=== PATIENT | female | born 2000 | race Caucasian/White ===

== ENCOUNTER 2020-11-03 10:52 | Observation (INO) ==
[2020-11-03] MEDS ORDERED: SODIUM CHLORIDE 0.9% 1000ML 1,000 ML IV ONE (11:15)
--- NOTE | 2020-11-03 11:24 | Emergency Department Note ---
History of Present Illness General Chief complaint: Neuro Symptoms/Deficit Stated complaint: MIGRAINE, NUMBNESS LEFT ARM Time Seen by Provider: 11/03/20 11:05 Source: patient History of Present Illness Provider complaint: Left arm numbness Onset (ago): hour(s) Location: upper extremity and left Radiation: non-radiation Severity: mild Pain Consistency: + intermittent Maximum Pain Intensity: 0 Quality: + other (Jnpa-loy-lidqwrf sensation) Relieved By: + none Associated symptoms: + headaches; no chest pain, no cough, no fever/chills, no nausea/vomiting, no shortness of breath and no weakness This is a 20-year-old female who self diagnosed herself with ocular migraines years ago presenting with headache and left arm numbness. The patient states that starting last night she developed numbness to the left arm which she describes as [id number] without loss of sensation. She states it is diffuse throughout the entire arm. She has no associated neck pain. She did have some spasms in the upper arm while this was happening as well. The symptoms seem to subside and then she developed a headache. The headache is on the right side of her head behind her right eye. She also had trouble with her vision and felt she likely had another ocular migraine. She has had similar headaches in the past and self diagnosed with ocular migraines without seeing a physician. She states the last time she had a headache like this was about a year and a half ago. She states that she does not see spots but she has trouble focusing on objects and reading. The headaches continued all night but seems to have subsided and is mostly gone now. She denies any weakness to the extremities or difficulty with her gait or swallowing. She denies any fever, chest pain, shortness of breath, cough or cold symptoms, abdominal pain or urinary symptoms. She denies any family history of early stroke or migraines. She does state that she is on control pills. Home Medications Medication Instructions Recorded Confirmed Type Control 1 tab PO DAILY 11/03/20 11/03/20 History Allergies Allergy/AdvReac Type Severity Reaction Status Date / Time No Known Allergies Allergy Unverified 11/03/20 11:57 Past Med/Surg History Medical History (Updated 11/03/20 @ 17:30 by Omari Beverly MD) No pertinent past medical history non smoker Family History (Updated 11/03/20 @ 15:09 by TREY Stock) Father Seizure Social History Smoking Status: Never smoker Feels Safe at Home: Yes Review of Systems See HPI for pertinent positives & negatives. and A total of 10 systems reviewed and were otherwise negative Physical Exam Vital Signs Vital Signs - 24 hr 11/03/20 10:53 11/03/20 11:10 11/03/20 11:25 Temperature 36.5 C Temperature Source Temporal Artery Scan Pulse Rate 85 62 Pulse Rate from SpO2 Sensor 63 Respiratory Rate 19 13 Blood Pressure 138/94 118/81 Blood Pressure Mean 108 93 Pulse Oximetry 100 100 100 Oxygen Delivery Method Room Air Room Air Sepsis Recent Fever Within 48 Hours No Sepsis New/Unexplained Change in Mental Status No Sepsis Action Taken by Nursing No Action Required 11/03/20 11:31 11/03/20 11:32 11/03/20 12:00 Temperature Temperature Source Pulse Rate 63 64 64 Pulse Rate from SpO2 Sensor 63 62 62 Respiratory Rate 13 18 18 Blood Pressure 130/71 128/81 Blood Pressure Mean 90 96 Pulse Oximetry 92 100 100 Oxygen Delivery Method Sepsis Recent Fever Within 48 Hours Sepsis New/Unexplained Change in Mental Status Sepsis Action Taken by Nursing 11/03/20 12:49 11/03/20 12:51 11/03/20 13:00 Temperature Temperature Source Pulse Rate 72 66 70 Pulse Rate from SpO2 Sensor 72 66 74 Respiratory Rate 16 11 L 19 Blood Pressure 111/71 111/71 Blood Pressure Mean 84 84 Pulse Oximetry 100 100 100 Oxygen Delivery Method Sepsis Recent Fever Within 48 Hours Sepsis New/Unexplained Change in Mental Status Sepsis Action Taken by Nursing 11/03/20 13:01 11/03/20 13:30 11/03/20 13:31 Temperature Temperature Source Pulse Rate 80 73 85 Pulse Rate from SpO2 Sensor 81 89 91 H Respiratory Rate 22 13 14 Blood Pressure 110/74 129/83 Blood Pressure Mean 86 98 Pulse Oximetry 100 85 L 98 Oxygen Delivery Method Sepsis Recent Fever Within 48 Hours Sepsis New/Unexplained Change in Mental Status Sepsis Action Taken by Nursing 11/03/20 14:00 11/03/20 14:01 11/03/20 14:30 Temperature Temperature Source Pulse Rate 75 83 85 Pulse Rate from SpO2 Sensor 81 79 Respiratory Rate 15 13 12 Blood Pressure 139/99 133/85 Blood Pressure Mean 112 101 Pulse Oximetry 100 100 Oxygen Delivery Method Sepsis Recent Fever Within 48 Hours Sepsis New/Unexplained Change in Mental Status Sepsis Action Taken by Nursing 11/03/20 14:35 11/03/20 15:00 11/03/20 15:30 Temperature Temperature Source Pulse Rate 66 85 65 Pulse Rate from SpO2 Sensor Respiratory Rate 12 16 13 Blood Pressure 133/85 105/90 123/74 Blood Pressure Mean 101 95 90 Pulse Oximetry Oxygen Delivery Method Sepsis Recent Fever Within 48 Hours Sepsis New/Unexplained Change in Mental Status Sepsis Action Taken by Nursing 11/03/20 15:31 11/03/20 16:00 11/03/20 16:01 Temperature Temperature Source Pulse Rate 67 67 67 Pulse Rate from SpO2 Sensor Respiratory Rate 15 12 17 Blood Pressure 112/67 Blood Pressure Mean 82 Pulse Oximetry Oxygen Delivery Method Sepsis Recent Fever Within 48 Hours Sepsis New/Unexplained Change in Mental Status Sepsis Action Taken by Nursing 11/03/20 16:37 11/03/20 16:38 11/03/20 17:00 Temperature Temperature Source Pulse Rate 64 60 71 Pulse Rate from SpO2 Sensor 64 61 68 Respiratory Rate 17 15 14 Blood Pressure 132/68 109/82 Blood Pressure Mean 89 91 Pulse Oximetry 96 97 100 Oxygen Delivery Method Sepsis Recent Fever Within 48 Hours Sepsis New/Unexplained Change in Mental Status Sepsis Action Taken by Nursing Constitutional: Vital signs reviewed. Eyes: Pupils are equal round reactive to light. Conjunctiva are noninjected. ENT: Pharynx is clear without erythema or exudate. Mucous membranes are moist. Neck supple without meningeal signs. Respiratory: Clear to auscultation bilaterally. Breath sounds are equal bilaterally. Cardiovascular: Regular rate and rhythm. No rubs or gallops. GI: Soft, nondistended and nontender. Bowel sounds are present. Musculoskeletal: No peripheral edema. No lower extremity tenderness. Integumentary: No cyanosis. or jaundice. Neurologic: The patient is awake and alert. Cranial nerves II-XII are intact. Motor is 5 out of 5 all extremities. Sensation is intact to light touch all extremities. Normal speech. No pronator drift. No limb ataxia. Visual lyons tested by confrontation are intact bilaterally. Psychiatric: Normal affect. Not anxious appearing. Course Administered Medications Discontinued Medications Aspirin (Aspirin 81 Mg Chew) 324 mg PO NOW STA Stop: 11/03/20 13:42 Last Admin: 11/03/20 13:55 Dose: 324 mg Documented by: [id number] Aspirin (Aspirin 81 Mg Ectab) 81 mg PO NOW STA Stop: 11/03/20 14:49 Last Admin: 11/03/20 15:01 Dose: Not Given Documented by: [id number] Gadobutrol (Gadobutrol 65ml Vial) 5 ml IV ONCE ONE Stop: 11/03/20 12:33 Last Admin: 11/03/20 12:33 Dose: 5 ml Documented by: [id number] Sodium Chloride (Nss 1000ml) 1,000 mls @ 999 mls/hr IV .Q1H1M ONE Stop: 11/03/20 12:15 Last Infusion: 11/03/20 12:29 Dose: 0 mls/hr Documented by: [id number] Admin: 11/03/20 11:28 Dose: 999 mls/hr Documented by: [id number] Ioversol (Optiray 320 125ml) 120 ml IV ONCE ONE Stop: 11/03/20 13:20 Last Admin: 11/03/20 13:19 Dose: 120 ml Documented by: [id number] Medical Decision Making Differential Diagnosis Complex migraine, tension headache, demyelinating disease, CVA, cervical ra diculopathy, aneurysm Medical Records Attestation: I reviewed the patient's medical records. I did perform a limited focused review of portions of the patient's old chart on the electronic medical record. The patient has had no prior visits to this hospital. Home Medications Current Medication List: was personally reviewed by me Laboratory Data Attestation: I reviewed the patient's lab results. Result diagrams: 11/03/20 11:23 11/03/20 11:23 Lab Results 11/03/20 11/03/20 11/03/20 Range/Units 11:23 11:23 11:24 WBC 10.00 (4.8-10.8) K/uL RBC 4.82 (4.2-5.4) M/uL Hgb 15.5 (12.0-16.0) g/dL Hct 43.8 (37-47) % MCV 90.9 (80-100) fL MCH 32.2 (25-34) pg MCHC 35.4 (32-36) g/dL RDW Std Deviation 38.5 (36.4-46.3) fL RDW Coeff of Apoorva 11.5 (11.5-14.5) % Plt Count 290 (130-400) K/uL MPV 10.7 H (7.4-10.4) fL Immature Gran % (Auto) 0.2 % Neut % (Auto) 76.8 % Lymph % (Auto) 17.4 % [place] % (Auto) 5.3 % Eos % (Auto) 0.1 % Baso % (Auto) 0.2 % Neut # (Auto) 7.68 H (1.4-6.5) K/uL Lymph # (Auto) 1.74 (1.2-3.4) K/uL [place] # (Auto) 0.53 (0.11-0.59) K/uL Eos # (Auto) 0.01 (0-0.5) K/uL Baso # (Auto) 0.02 (0-0.2) K/uL Immature Gran # (Auto) 0.02 (0.00-0.02) K/uL PT (9.0-12.0) Seconds INR (0.9-1.1) APTT (21.0-31.0) Seconds PTT Ratio Sodium 140 (136-145) mmol/L Potassium 4.1 (3.5-5.1) mmol/L Chloride 110 H (98-107) mmol/L Carbon Dioxide 23 (21-32) mmol/L Anion Gap 7.0 (3-11) BUN 5 L (7-18) mg/dl Creatinine 0.73 (0.6-1.2) mg/dl Est Cr Clr Drug Dosing 92.0 ml/min Est GFR ( Amer) 136.5 Est GFR (Non-Af Amer) 117.7 BUN/Creatinine Ratio 7.2 L (10-20) Glucose 94 (70-99) mg/dl Calcium 9.3 (8.5-10.1) mg/dl Magnesium (1.8-2.4) mg/dl Total Bilirubin 0.6 (0.2-1) mg/dl AST 18 (15-37) U/L ALT 22 (12-78) U/L Alkaline Phosphatase 63 (45-117) U/L Troponin I (0-0.045) ng/ml Total Protein 8.0 (6.4-8.2) gm/dl Albumin 4.3 (3.4-5.0) gm/dl Globulin 3.7 (2.5-4.0) gm/dl Albumin/Globulin Ratio 1.2 (0.9-2) POC Ur Test NEG (NEG) Urine Opiates Screen (Neg) Ur Methadone, Qual (Neg) Urine Barbiturates (Neg) Ur Phencyclidine (PCP) (Neg) U Amphetamin/Meth Scrn (Neg) MDMA (Ecstasy) Screen (Neg) U Benzodiazepines Scrn (Neg) Ur Cocaine Metabolite (Neg) U Marijuana (THC) Screen (Neg) COVID-19 Eval Order SARS-CoV-2, RNA, NAAT (NEGATIVE) Blood Type Antibody Screen 11/03/20 11/03/20 11/03/20 Range/Units 11:24 13:47 13:47 WBC (4.8-10.8) K/uL RBC (4.2-5.4) M/uL Hgb (12.0-16.0) g/dL Hct (37-47) % MCV (80-100) fL MCH (25-34) pg MCHC (32-36) g/dL RDW Std Deviation (36.4-46.3) fL RDW Coeff of Apoorva (11.5-14.5) % Plt Count (130-400) K/uL MPV (7.4-10.4) fL Immature Gran % (Auto) % Neut % (Auto) % Lymph % (Auto) % [place] % (Auto) % Eos % (Auto) % Baso % (Auto) % Neut # (Auto) (1.4-6.5) K/uL Lymph # (Auto) (1.2-3.4) K/uL [place] # (Auto) (0.11-0.59) K/uL Eos # (Auto) (0-0.5) K/uL Baso # (Auto) (0-0.2) K/uL Immature Gran # (Auto) (0.00-0.02) K/uL PT (9.0-12.0) Seconds INR (0.9-1.1) APTT (21.0-31.0) Seconds PTT Ratio Sodium (136-145) mmol/L Potassium (3.5-5.1) mmol/L Chloride (98-107) mmol/L Carbon Dioxide (21-32) mmol/L Anion Gap (3-11) BUN (7-18) mg/dl Creatinine (0.6-1.2) mg/dl Est Cr Clr Drug Dosing ml/min Est GFR ( Amer) Est GFR (Non-Af Amer) BUN/Creatinine Ratio (10-20) Glucose (70-99) mg/dl Calcium (8.5-10.1) mg/dl Magnesium (1.8-2.4) mg/dl Total Bilirubin (0.2-1) mg/dl AST (15-37) U/L ALT (12-78) U/L Alkaline Phosphatase (45-117) U/L Troponin I (0-0.045) ng/ml Total Protein (6.4-8.2) gm/dl Albumin (3.4-5.0) gm/dl Globulin (2.5-4.0) gm/dl Albumin/Globulin Ratio (0.9-2) POC Ur Test (NEG) Urine Opiates Screen Neg (Neg) Ur Methadone, Qual Neg (Neg) Urine Barbiturates Neg (Neg) Ur Phencyclidine (PCP) Neg (Neg) U Amphetamin/Meth Scrn Neg (Neg) MDMA (Ecstasy) Screen Neg (Neg) U Benzodiazepines Scrn Neg (Neg) Ur Cocaine Metabolite Neg (Neg) U Marijuana (THC) Screen Neg (Neg) COVID-19 Eval Order Covid19 IDNow atMMIC SARS-CoV-2, RNA, NAAT NEGATIVE (NEGATIVE) Blood Type Antibody Screen 11/03/20 11/03/20 11/03/20 Range/Units 13:50 13:50 13:50 WBC (4.8-10.8) K/uL RBC (4.2-5.4) M/uL Hgb (12.0-16.0) g/dL Hct (37-47) % MCV (80-100) fL MCH (25-34) pg MCHC (32-36) g/dL RDW Std Deviation (36.4-46.3) fL RDW Coeff of Apoorva (11.5-14.5) % Plt Count (130-400) K/uL MPV (7.4-10.4) fL Immature Gran % (Auto) % Neut % (Auto) % Lymph % (Auto) % [place] % (Auto) % Eos % (Auto) % Baso % (Auto) % Neut # (Auto) (1.4-6.5) K/uL Lymph # (Auto) (1.2-3.4) K/uL [place] # (Auto) (0.11-0.59) K/uL Eos # (Auto) (0-0.5) K/uL Baso # (Auto) (0-0.2) K/uL Immature Gran # (Auto) (0.00-0.02) K/uL PT 10.5 (9.0-12.0) Seconds INR 1.0 (0.9-1.1) APTT 27.3 (21.0-31.0) Seconds PTT Ratio 1.0 Sodium (136-145) mmol/L Potassium (3.5-5.1) mmol/L Chloride (98-107) mmol/L Carbon Dioxide (21-32) mmol/L Anion Gap (3-11) BUN (7-18) mg/dl Creatinine (0.6-1.2) mg/dl Est Cr Clr Drug Dosing ml/min Est GFR ( Amer) Est GFR (Non-Af Amer) BUN/Creatinine Ratio (10-20) Glucose (70-99) mg/dl Calcium (8.5-10.1) mg/dl Magnesium 2.1 (1.8-2.4) mg/dl Total Bilirubin (0.2-1) mg/dl AST (15-37) U/L ALT (12-78) U/L Alkaline Phosphatase (45-117) U/L Troponin I < 0.015 (0-0.045) ng/ml Total Protein (6.4-8.2) gm/dl Albumin (3.4-5.0) gm/dl Globulin (2.5-4.0) gm/dl Albumin/Globulin Ratio (0.9-2) POC Ur Test (NEG) Urine Opiates Screen (Neg) Ur Methadone, Qual (Neg) Urine Barbiturates (Neg) Ur Phencyclidine (PCP) (Neg) U Amphetamin/Meth Scrn (Neg) MDMA (Ecstasy) Screen (Neg) U Benzodiazepines Scrn (Neg) Ur Cocaine Metabolite (Neg) U Marijuana (THC) Screen (Neg) COVID-19 Eval Order SARS-CoV-2, RNA, NAAT (NEGATIVE) Blood Type B Negative Antibody Screen NEGATIVE Imaging Data Radiologist's Impression: CT angio neck with con CLINICAL HISTORY: 20 years-old Female with Stroke Like Symptoms. Acute stroke the right posterior circulation COMPARISON STUDY: MRI brain and MRA head of same day TECHNIQUE: Following the IV administration of 1 20 mL of Optiray 320, CT angiogram of the neck was performed from the aortic arch to the skull base. Images are reviewed in the axial, sagittal, and coronal planes. 3-D MIPS images are created and assessed. IV contrast was administered without complication. All measurements were calculated based on NASCET criteria. A dose lowering technique was utilized adhering to the principles of ALARA. CT DOSE: 714.24 mGycm FINDINGS: Three-vessel morphology of the thoracic aortic arch. The innominate and imaged subclavian arteries are normal. Patent and normal-appearing common, internal carotid and vertebral arteries. The imaged basilar artery is also normal. No aneurysm, dissection, high-grade stenosis or proximal branch occlusion. Unremarkable thyroid. Lung apices are clear without pneumothorax. Soft tissue d ensity of the anterior mediastinum suggests residual thymic tissue. Minimal uncovertebral spurring at C2-C3 at C3-C4. No acute fracture. Lung apices are clear. IMPRESSION:Unremarkable CTA of the neck. ACT 112: Negative or not required by law. The above report was generated using voice recognition software. It may contain grammatical, syntax or spelling errors. Electronically signed by: Dhaval Donnelly M.D. 11/03/2020 1:37 PM Dictated: 11/03/20 1323 Transcribed: 11/03/20 1323 MR ANGIOGRAM OF THE BRAIN CLINICAL HISTORY: Left upper extremity numbness. Vision loss. COMPARISON STUDY: MRI of the brain performed concurrently on 11/03/2020. TECHNIQUE: 3-D [id number] MR angiography of the intracranial circulation is performed. 3-D tumble views are created and assessed. IV contrast was not administered for this examination. FINDINGS: There is a right posterior communicating artery. The internal carotid arteries are widely patent bilaterally, as are the anterior and middle cerebral arteries. The vertebrobasilar system and posterior cerebral arteries are widely patent. The vertebral arteries are codominant. There is no aneurysm, high-grade stenosis, or focal vessel cutoff seen throughout the intracranial circulation. The brain parenchyma is normal as visualized. IMPRESSION: Unremarkable MR angiogram of the brain. ACT 112: Negative or not required by law. Electronically signed by: Osmin Palencia M.D. 11/03/2020 12:29 PM Dictated: 11/03/20 1227 Transcribed: 11/03/207 MRI OF THE BRAIN COMBO CLINICAL HISTORY: Left arm numbness. Visual changes. COMPARISON STUDY: No priors. TECHNIQUE: MRI of the brain was performed utilizing various T1 and T2-weighted sequences in the axial, sagittal, and coronal planes. Contrast-enhanced sequences were acquired following the administration of 5 cc of Gadavist. FINDINGS: Brain parenchyma: There are least 3 small foci of restricted diffusion identified in the right posterior parieto-occipital region consistent with foci of acute to subacute ischemia. The largest measures up to 8 mm. No additional foci of restricted diffusion are identified. There is no hemorrhage or mass effect. No enhancing mass lesion is identified on the postcontrast images. Upton-white matter differentiation is preserved. No extra-axial fluid collection is seen. The cerebellar tonsils are normal in configuration. Ventricles, sulci, and cisterns: Normal in configuration. Pituitary and sella: Unremarkable. Intracranial vasculature: Normal flow voids are maintained at the skull base. Orbits: The bony orbits are grossly intact. Orbital contents are normal in appearance. Sinuses and mastoids: Clear. Calvarium: Unremarkable. Cervical cord: Partially visualized cervical spinal cord is normal in morphology and signal intensity. IMPRESSION: 1. There are small foci of restricted diffusion in the posterior right parieto- occipital region as above consistent with acute to subacute ischemia. 2. No additional foci of acute ischemia are identified. 3. There is no hemorrhage or mass effect. ACT 112: Negative or not required by law. Electronically signed by: Osmin Palencia M.D. 11/03/2020 12:48 PM Dictated: 11/03/20 1243 Transcribed: 11/03/20 124 ECG Data Attestation: I personally reviewed and interpreted this ECG as follows: Indication: + other (Stroke) Rate (beats per minute): 63 Rhythm: + normal sinus ECG Intervals/blocks: + Short LA ECG ST segments: no ST elevation ECG Findings: + PACs MDM Narrative I did evaluate the patient as noted above. The patient is presenting with symptoms concerning for a complex migraine versus CVA versus aneurysm. She states she has ocular migraines but this is self diagnosed and there is no [facility] history of migraines. She also had some visual problems that were not typical of scotomas. On exam here her NIH stroke scale is 0. Given her symptoms I was concerned about the potential for CVA and recommended advanced imaging. IV access was established. I did place an order for continuous cardiac monitoring. The monitor showed normal sinus rhythm at a rate of 68 bpm. She did have occasional PACs on the monitor. I did order and personally review the patient's 12-lead EKG as described above. She has a short LA interval with PACs. No delta waves are noted. She denies any history of preexcitation or WPW in the family. Urine test is negative. Urine tox screen is negative. I did order and review the patient's blood work as noted in the electronic medical record. Her white blood cell count is unremarkable. She is not anemic. Her electrolytes are unremarkable. Troponin is negative. I did order a MRI of the head and MRA of the head as well. Unfortunately the patient has small acute to subacute infarcts in the posterior right parieto-occipital lobe. MRA is n egative. I did discuss this with the patient. Her NIH score remains 0. She is not a IV TPA candidate. After discussion with the patient and her father over the telephone, I did order a CT angiogram of the neck. I did review the images myself as well as the radiology report as described above. There is no evidence of carotid stenosis or dissection of the carotid arteries. I did treat the pat ient with aspirin 324 mg p.o. I did recommend hospitalization for further care and evaluation including echocardiogram. I did order a hypercoagulable panel. I did discuss case with the hospitalist and correctional case manager. Impression & Plan Acute CVA (cerebrovascular accident) Discharge Plan Visit Data Chief Complaint: Neuro Symptoms/Deficit Stated Complaint: MIGRAINE, NUMBNESS LEFT ARM ED Provider: Omari Beverly Discharge Problem: Acute CVA (cerebrovascular accident) Forms Stand Alone Forms: My [employer] Prescriptions Prescriptions: No Action Control 1 tab PO DAILY RF: 0 Referrals Referrals: [facility] [Primary Care Provider] -
[2020-11-03 11:46] LABS: Basophils # (auto) 0.02 K/uL (0-0.2); Basophils % (auto) 0.2 %; Eosinophils # (auto) 0.01 K/uL (0-0.5); Eosinophils % (auto) 0.1 %; Hematocrit (blood only) 43.8 % (37-47); Hemoglobin 15.5 g/dL (12.0-16.0); Immature Granulocytes # (auto) 0.02 K/uL (0.00-0.02); Immature Granulocytes % (auto) 0.2 %; Lymphocytes # (auto) 1.74 K/uL (1.2-3.4); Lymphocytes % (auto) 17.4 %; Mean Corpuscular Hemoglobin 32.2 pg (25-34); Mean Corpuscular Hgb Conc 35.4 g/dL (32-36); Mean Corpuscular Volume 90.9 fL (80-100); Mean Platelet Volume 10.7 fL (7.4-10.4); Monocytes # (auto) 0.53 K/uL (0.11-0.59); Monocytes % (auto) 5.3 %; Neutrophils # (auto) 7.68 K/uL (1.4-6.5); Neutrophils % (auto) 76.8 %; Platelet Count 290 K/uL (130-400); RDW Coefficient of Variation 11.5 % (11.5-14.5); RDW Standard Deviation 38.5 fL (36.4-46.3); Red Blood Count 4.82 M/uL (4.2-5.4)
[2020-11-03 12:06] LABS: Albumin Globulin Ratio 1.2 (0.9-2); Albumin Level 4.3 gm/dl (3.4-5.0); BUN Creatinine Ratio 7.2 (10-20); Bilirubin,Total 0.6 mg/dl (0.2-1); Calcium 9.3 mg/dl (8.5-10.1); Est GFR (African American) 136.5; Est GFR (Non-African American) 117.7; Globulin 3.7 gm/dl (2.5-4.0); Potassium 4.1 mmol/L (3.5-5.1)
--- NOTE | 2020-11-03 12:31 | Magnetic Resonance Report ---
MR ANGIOGRAM OF THE BRAIN CLINICAL HISTORY: Left upper extremity numbness. Vision loss. COMPARISON STUDY: MRI of the brain performed concurrently on 11/03/2020. TECHNIQUE: 3-D [id number] MR angiography of the intracranial circulation is performed. 3-D tumble views are created and assessed. IV contrast was not administered for this examination. FINDINGS: There is a right posterior communicating artery. The internal carotid arteries are widely p atent bilaterally, as are the anterior and middle cerebral arteries. The vertebrobasilar system and p osterior cerebral arteries are widely patent. The vertebral arteries are codominant. There is no aneu rysm, high-grade stenosis, or focal vessel cutoff seen throughout the intracranial circulation. The b rain parenchyma is normal as visualized. IMPRESSION: Unremarkable MR angiogram of the brain. ACT 112: Negative or not required by law. Electronically signed by: Osmin Palencia M.D. 11/03/2020 12:29 PM
[2020-11-03] MEDS ORDERED: GADOBUTROL 65ML VIAL IV ONE (12:32)
--- NOTE | 2020-11-03 12:49 | Magnetic Resonance Report ---
MRI OF THE BRAIN COMBO CLINICAL HISTORY: Left arm numbness. Visual changes. COMPARISON STUDY: No priors. TECHNIQUE: MRI of the brain was performed utilizing various T1 and T2-weighted sequences in the axial , sagittal, and coronal planes. Contrast-enhanced sequences were acquired following the administratio n of 5 cc of Gadavist. FINDINGS: Brain parenchyma: There are least 3 small foci of restricted diffusion identified in the right front line supervisor ior parieto-occipital region consistent with foci of acute to subacute ischemia. The largest measures up to 8 mm. No additional foci of restricted diffusion are identified. There is no hemorrhage or mas s effect. No enhancing mass lesion is identified on the postcontrast images. Upton-white matter diffe rentiation is preserved. No extra-axial fluid collection is seen. The cerebellar tonsils are normal i n configuration. Ventricles, sulci, and cisterns: Normal in configuration. Pituitary and sella: Unremarkable. Intracranial vasculature: Normal flow voids are maintained at the skull base. Orbits: The bony orbits are grossly intact. Orbital contents are normal in appearance. Sinuses and mastoids: Clear. Calvarium: Unremarkable. Cervical cord: Partially visualized cervical spinal cord is normal in morphology and signal intensity . IMPRESSION: 1. There are small foci of restricted diffusion in the posterior right parieto-occipital region as ab ove consistent with acute to subacute ischemia. 2. No additional foci of acute ischemia are identified. 3. There is no hemorrhage or mass effect. ACT 112: Negative or not required by law. Electronically signed by: Osmin Palencia M.D. 11/03/2020 12:48 PM
[2020-11-03] MEDS ORDERED: OPTIRAY 320 125ml IV ONE (13:19)
--- NOTE | 2020-11-03 13:38 | CT Scan Report ---
CT angio neck with con CLINICAL HISTORY: 20 years-old Female with Stroke Like Symptoms. Acute stroke the right posterior circulation COMPARISON STUDY: MRI brain and MRA head of same day TECHNIQUE: Following the IV administration of 1 20 mL of Optiray 320, CT angiogram of the neck was pe rformed from the aortic arch to the skull base. Images are reviewed in the axial, sagittal, and coron al planes. 3-D MIPS images are created and assessed. IV contrast was administered without complicatio n. All measurements were calculated based on NASCET criteria. A dose lowering technique was utilized adhering to the principles of ALARA. CT DOSE: 714.24 mGycm FINDINGS: Three-vessel morphology of the thoracic aortic arch. The innominate and imaged subclavian arteries ar e normal. Patent and normal-appearing common, internal carotid and vertebral arteries. The imaged bas ilar artery is also normal. No aneurysm, dissection, high-grade stenosis or proximal branch occlusion . Unremarkable thyroid. Lung apices are clear without pneumothorax. Soft tissue density of the anteri or mediastinum suggests residual thymic tissue. Minimal uncovertebral spurring at C2-C3 at C3-C4. No acute fracture. Lung apices are clear. IMPRESSION:Unremarkable CTA of the neck. ACT 112: Negative or not required by law. The above report was generated using voice recognition software. It may contain grammatical, syntax o r spelling errors. Electronically signed by: Dhaval Donnelly M.D. 11/03/2020 1:37 PM
[2020-11-03] MEDS ORDERED: ASPIRIN 81 MG CHEW PO STA (13:41)
[2020-11-03 14:16] LABS: Amphetamines+Metham, Urine Neg (Neg); Barbiturates, Urine Neg (Neg); Benzodiazepine, Urine Neg (Neg); Cocaine, Urine Neg (Neg); MDMA (Ecstacy), Urine Neg (Neg); Methadone, Urine Neg (Neg); Opiate, Urine Neg (Neg); Phencyclidine, Urine Neg (Neg)
[2020-11-03 14:27] LABS: Partial Thromboplastin Time 27.3 Seconds (21.0-31.0); Prothrombin Time 10.5 Seconds (9.0-12.0)
[2020-11-03 14:28] LABS: Magnesium 2.1 mg/dl (1.8-2.4); Troponin I < 0.015 ng/ml (0-0.045)
[2020-11-03] MEDS ORDERED: ASPIRIN 81 MG ECTAB PO STA (14:48)
--- NOTE | 2020-11-03 15:00 | History & Physical Report ---
Date of Service November 03, 2020 Assessment & Plan (1) Stroke: Ischemic stroke, risk factor PRESTON, non smoker 3 small foci of restricted diffusion identified in the right posterior parieto- occipital region. - Patient not candidate for TPA - Tox screen normal, glucose normal, COVID negative - ASA given in EMD - No residual neurological deficits at this time - Q2 hour neurological checks - TTE ordered - Irregular rhythm with PACS on monitor with short CT no other cardiac history revealed by patient-- telemetry rule out dysrythmia - Hypercoagulability labs sent, ESR, antiphospholipid, homocysteine panel pending - lipids in morning, unlikely needing therapy - PRESTON on hold, patient was educated that this will likely have to be discontinued and other avenues pursued with her PCP - Neurology consult History of Present Illness Primary Care Provider: [facility] 20 YOF with past medical history of self diagnosed ocular migraines, contraceptive use, denies binge drinking or smoking. Patient comes to the emergency room today for evaluation of neurologic symptoms and eye pain. No history of head or neck trauma prior to this event. Patient states that around 2100 last night, she first noticed that her left arm started having pins and needles, and then became weak to move and "spasms", this lasted for about an hour, this was then associated with a bifrontal headache with then pain behind her right eye. This was also associated with bottom lip numbness and the tip of her tongue numbness. The eye pain was associated with blind spot off center of her vision if she was focusing on an object or trying to read a text. Patient states that she has been having these "ocular migraines" over the past 2 years and they are normally relieved with Advil and rest. The patient awoke this morning and was still having the eye pain without the visual symptom so she went to urgent care. Urgent care referred the patient here. The patient states that she finally felt like she was back to normal at 1000 this morning. She denies any balance problems, difficulty reading or writing, return of weakness, or difficulty swallowing. The patient COVID test is negative, however the patient thinks she may have had COVID last year while traveling in [place]. She has not received her influenza vaccine. The patient will be observed to continue stroke work-up, transthoracic echo, neurology evaluation, and hypercoagulability workup started. Allergies Allergy/AdvReac Type Severity Reaction Status Date / Time No Known Allergies Allergy Unverified 11/03/20 11:57 Home Medications Medication Instructions Recorded Confirmed Type Control 1 tab PO DAILY 11/03/20 11/03/20 History Past Med/Surg History Medical History (Updated 11/03/20 @ 15:06 by TREY Stock) No pertinent past medical history non smoker Family History (Updated 11/03/20 @ 15:09 by TREY Stock) Father Seizure Social History Smoking Status: Never smoker Feels Safe at Home: Yes Review of Systems Review of Systems: REVIEW OF SYSTEMS: Constitutional: No fever, sweats or chills Eyes: as per HPI, No diplopia, no worsening or blurred vision ENT: normal hearing, no trouble swallowing Respiratory: No cough, sputum, dyspnea at rest or on exertion Cardiovascular: No chest pain, tightness or palpitations Abdomen: No pain, nausea, vomiting, diarrhea or constipation Musculoskeletal: No joint pain, calf pain, swelling Neurologic: No weakness, numbness/tingling, or balance problems Psychiatric: No anxiety or depression Skin: No rash or itch Physical Exam Physical Exam: PHYSICAL EXAM: General: awake, alert, no apparent distress Head: Normocephalic, atraumatic ENT: normal hearing, no pharyngeal exudate, mucous membranes moist Neuro: CN 2-12 intact, AAO x 3, PERRL, EOMI, visual acuity normal with glasses, speech clear and appropriate, strength intact bilaterally 5/5, sensation intact and equal all extremities and dermatomes, no pronator drift, no ataxia, no overshoot with finger to nose, normal rapid movements intact. Chest: equal rise and fall of the chest, no accessory muscle use, no heaves or thrills, Clear to auscultation, on room air, Cardiac: Regular rate, irregular rhythm, with PAC, telemetry reviewed, skin warm dry, cap refill <3 seconds, peripheral pulses, +2 no JVD, no murmur GI: NABS x 4 quadrants, soft, nontender to palpation, no rebound, guarding or tenderness : Spontaneously voiding, no pain, no CVA tenderness, Extremities: Normal inspection, no peripheral edema or erythema, calfs nontender to palpation Psych: Normal mood and affect Skin: no rash or erythema Results & Data Results & Data ([facility]) Vital Signs (Past 12 Hours) Vital Signs Temp Pulse Resp BP Pulse Ox 11/03/20 13:31 85 14 98 11/03/20 13:30 73 13 129/83 85 L 11/03/20 13:01 80 22 110/74 100 11/03/20 13:00 70 19 100 11/03/20 12:51 66 11 L 111/71 100 11/03/20 12:49 72 16 111/71 100 11/03/20 12:00 64 18 128/81 100 11/03/20 11:32 64 18 130/71 100 11/03/20 11:31 63 13 92 11/03/20 11:25 62 13 118/81 100 11/03/20 11:10 100 11/03/20 10:53 36.5 C 85 19 138/94 100 Laboratory Results Abnormal lab results 11/03/20 11/03/20 Range/Units 11:23 11:23 MPV 10.7 H (7.4-10.4) fL Neut # (Auto) 7.68 H (1.4-6.5) K/uL Chloride 110 H (98-107) mmol/L BUN 5 L (7-18) mg/dl BUN/Creatinine Ratio 7.2 L (10-20) Diagnostic Findings MRI OF THE BRAIN COMBO CLINICAL HISTORY: Left arm numbness. Visual changes. COMPARISON STUDY: No priors. TECHNIQUE: MRI of the brain was performed utilizing various T1 and T2-weighted sequences in the axial, sagittal, and coronal planes. Contrast-enhanced sequences were acquired following the administration of 5 cc of Gadavist. FINDINGS: Brain parenchyma: There are least 3 small foci of restricted diffusion identified in the right posterior parieto-occipital region consistent with foci of acute to subacute ischemia. The largest measures up to 8 mm. No additional foci of restricted diffusion are identified. There is no hemorrhage or mass effect. No enhancing mass lesion is identified on the postcontrast images. Upton-white matter differentiation is preserved. No extra-axial fluid collection is seen. The cerebellar tonsils are normal in configuration. Ventricles, sulci, and cisterns: Normal in configuration. Pituitary and sella: Unremarkable. Intracranial vasculature: Normal flow voids are maintained at the skull base. Orbits: The bony orbits are grossly intact. Orbital contents are normal in appearance. Sinuses and mastoids: Clear. Calvarium: Unremarkable. Cervical cord: Partially visualized cervical spinal cord is normal in morphology and signal intensity. IMPRESSION: 1. There are small foci of restricted diffusion in the posterior right parieto- occipital region as above consistent with acute to subacute ischemia. 2. No additional foci of acute ischemia are identified. 3. There is no hemorrhage or mass effect. MR ANGIOGRAM OF THE BRAIN CLINICAL HISTORY: Left upper extremity numbness. Vision loss. COMPARISON STUDY: MRI of the brain performed concurrently on 11/03/2020. TECHNIQUE: 3-D [id number] MR angiography of the intracranial circulation is performed. 3-D tumble views are created and assessed. IV contrast was not administered for this examination. FINDINGS: There is a right posterior communicating artery. The internal carotid arteries are widely patent bilaterally, as are the anterior and middle cerebral arteries. The vertebrobasilar system and posterior cerebral arteries are widely patent. The vertebral arteries are codominant. There is no aneurysm, high-grade stenosis, or focal vessel cutoff seen throughout the intracranial circulation. The brain parenchyma is normal as visualized. IMPRESSION: Unremarkable MR angiogram of the brain. CT angio neck with con CLINICAL HISTORY: 20 years-old Female with Stroke Like Symptoms. Acute stroke the right posterior circulation COMPARISON STUDY: MRI brain and MRA head of same day TECHNIQUE: Following the IV administration of 1 20 mL of Optiray 320, CT angiogram of the neck was performed from the aortic arch to the skull base. Images are reviewed in the axial, sagittal, and coronal planes. 3-D MIPS images are created and assessed. IV contrast was administered without complication. All measurements were calculated based on NASCET criteria. A dose lowering technique was utilized adhering to the principles of ALARA. CT DOSE: 714.24 mGycm FINDINGS: Three-vessel morphology of the thoracic aortic arch. The innominate and imaged subclavian arteries are normal. Patent and normal-appearing common, internal carotid and vertebral arteries. The imaged basilar artery is also normal. No aneurysm, dissection, high-grade stenosis or proximal branch occlusion. Unremarkable thyroid. Lung apices are clear without pneumothorax. Soft tissue density of the anterior mediastinum suggests residual thymic tissue. Minimal uncovertebral spurring at C2-C3 at C3-C4. No acute fracture. Lung apices are clear. IMPRESSION:Unremarkable CTA of the neck. Medications Administered Administered Aspirin (Aspirin 81 Mg Chew) 324 mg PO NOW STA Stop: 11/03/20 13:42 Last Admin: 11/03/20 13:55 Dose: 324 mg Documented by: [id number] Gadobutrol (Gadobutrol 65ml Vial) 5 ml IV ONCE ONE Stop: 11/03/20 12:33 Last Admin: 11/03/20 12:33 Dose: 5 ml Documented by: [id number] Sodium Chloride (Nss 1000ml) 1,000 mls @ 999 mls/hr IV .Q1H1M ONE Stop: 11/03/20 12:15 Last Infusion: 11/03/20 12:29 Dose: 0 mls/hr Documented by: [id number] Admin: 11/03/20 11:28 Dose: 999 mls/hr Documented by: [id number] Ioversol (Optiray 320 125ml) 120 ml IV ONCE ONE Stop: 11/03/20 13:20 Last Admin: 11/03/20 13:19 Dose: 120 ml Documented by: [id number] ECG Additional Comments: Sinus rhythm with marked sinus arrhythmia with short CT Code Status & VTE Plan Code Status CODE: FULL VTE: SCD's ASA ambulation VTE Prophylaxis Plan VTE Prophylaxis will be ordered: Yes Supervising Physician Co-Signing Physician Notes I supervised TREY Flores on this admission. I interviewed and examined the patient independently of him. The plan is as written in his note except for any following changes/exceptions: None 20yo F w/ hx of what sounds like ocular migraines (self-diagnosed) and on oral contraceptive who presents with vision issues and right ocular pain last night. Vision changes continued into this morning, but have now resolved. MRI brain shows "small foci of restricted diffusion in the posterior right parieto- occipital region" consistent with a small stroke. Will admit to telemetry, start baby ASA, TTE, and neurology consult in the AM. Counseled the patient on having to stop her oral contraceptive and briefly discussed alternative contraceptive strategies. PG Care Time/CCT Total # of Minutes Spent Total Time Spent with Patient: Total time spent is greater than 50% in coordination of care (as documented) at patient's floor/unit and/or counseling patient: Coding Level of Care Code 88198 OBS Care - Level 2 Diagnoses Stroke I63.9 CVA mechanism: embolism Laterality of affected vessel: right (1) Stroke CVA mechanism: embolism Laterality of affected vessel: right
--- NOTE | 2020-11-03 17:04 | Electrocardiogram Report ---
Test Reason : Blood Pressure : / mmHG Vent. Rate : 063 BPM Atrial Rate : 063 BPM P-R Int : 108 ms QRS Dur : 090 ms QT Int : 432 ms P-R-T Axes : 040 043 043 degrees QTc Int : 442 ms Sinus rhythm with marked sinus arrhythmia Incomplete right bundle branch block Borderline ECG No previous ECGs available Confirmed by Ej Plummer ([id number]) on 11/03/2020 5:04:01 PM Referred By: REFERRED SELF Confirmed By:Patricio Plummer
[2020-11-03] MEDS ORDERED: ONDANSETRON INJ 2 MG/ML 2 ML VIAL IV PRN (17:35)
[2020-11-03] MEDS ORDERED: PHARMACIST DISCHARGE MED REC CONSULT PRN (17:35)
[2020-11-03] MEDS ORDERED: ACETAMINOPHEN 325 MG TAB PO PRN (17:35)
[2020-11-03 18:45] LABS: BUN Creatinine Ratio 5.9 (10-20); Calcium 8.9 mg/dl (8.5-10.1); Creatinine Clr Calc Pharmacy 101.7 ml/min; Est GFR (African American) 146.4; Est GFR (Non-African American) 126.3; Potassium 3.7 mmol/L (3.5-5.1)
[2020-11-04 07:52] LABS: Prothrombin Time 10.3 Seconds (9.0-12.0)
[2020-11-04 08:05] LABS: BUN Creatinine Ratio 9.6 (10-20); Calcium 9.1 mg/dl (8.5-10.1); Creatinine Clr Calc Pharmacy 98.8 ml/min; Est GFR (African American) 144.9; Potassium 3.9 mmol/L (3.5-5.1)
[2020-11-04 08:52] LABS: Estimated Average Glucose 94 mg/dl; Hemoglobin A1C 4.9 % (4.5-5.6)
[2020-11-04] MEDS ORDERED: ASPIRIN 81 MG ECTAB PO SCH (09:00)
[2020-11-04 09:35] LABS: Basophils # (auto) 0.01 K/uL (0-0.2); Basophils % (auto) 0.2 %; Eosinophils # (auto) 0.09 K/uL (0-0.5); Eosinophils % (auto) 1.8 %; Hematocrit (blood only) 38.4 % (37-47); Hemoglobin 13.4 g/dL (12.0-16.0); Immature Granulocytes # (auto) 0.02 K/uL (0.00-0.02); Immature Granulocytes % (auto) 0.4 %; Lymphocytes # (auto) 1.81 K/uL (1.2-3.4); Lymphocytes % (auto) 36.9 %; Mean Corpuscular Hemoglobin 31.9 pg (25-34); Mean Corpuscular Hgb Conc 34.9 g/dL (32-36); Mean Corpuscular Volume 91.4 fL (80-100); Mean Platelet Volume 10.5 fL (7.4-10.4); Monocytes # (auto) 0.48 K/uL (0.11-0.59); Monocytes % (auto) 9.8 %; Neutrophils % (auto) 50.9 %; Platelet Count 229 K/uL (130-400); RDW Coefficient of Variation 11.7 % (11.5-14.5); RDW Standard Deviation 39.4 fL (36.4-46.3); White Blood Count 4.91 K/uL (4.8-10.8)
--- NOTE | 2020-11-04 11:04 | Discharge Summary ---
Date of Service November 04, 2020 Admission HPI Per Admitting Provider 20 YOF with past medical history of self diagnosed ocular migraines, contraceptive use, denies binge drinking or smoking. Patient comes to the emergency room today for evaluation of neurologic symptoms and eye pain. No history of head or neck trauma prior to this event. Patient states that around 2100 last night, she first noticed that her left arm started having pins and needles, and then became weak to move and "spasms", this lasted for about an hour, this was then associated with a bifrontal headache with then pain behind her right eye. This was also associated with bottom lip numbness and the tip of her tongue numbness. The eye pain was associated with blind spot off center of her vision if she was focusing on an object or trying to read a text. Patient states that she has been having these "ocular migraines" over the past 2 years and they are normally relieved with Advil and rest. The patient awoke this morning and was still having the eye pain without the visual symptom so she went to urgent care. Urgent care referred the patient here. The patient states that she finally felt like she was back to normal at 1000 this morning. She denies any balance problems, difficulty reading or writing, return of weakness, or difficulty swallowing. The patient COVID test is negative, however the patient thinks she may have had COVID last year while traveling in [place]. She has not received her influenza vaccine. The patient will be observed to continue stroke work-up, transthoracic echo, neurology evaluation, and hypercoagulability workup started. Admission Exam Per Admitting Provider General: awake, alert, no apparent distress Head: Normocephalic, atraumatic ENT: normal hearing, no pharyngeal exudate, mucous membranes moist Neuro: CN 2-12 intact, AAO x 3, PERRL, EOMI, visual acuity normal with glasses, speech clear and appropriate, strength intact bilaterally 5/5, sensation intact and equal all extremities and dermatomes, no pronator drift, no ataxia, no overshoot with finger to nose, normal rapid movements intact. Chest: equal rise and fall of the chest, no accessory muscle use, no heaves or thrills, Clear to auscultation, on room air, Cardiac: Regular rate, irregular rhythm, with PAC, telemetry reviewed, skin warm dry, cap refill <3 seconds, peripheral pulses, +2 no JVD, no murmur GI: NABS x 4 quadrants, soft, nontender to palpation, no rebound, guarding or tenderness : Spontaneously voiding, no pain, no CVA tenderness, Extremities: Normal inspection, no peripheral edema or erythema, calfs nontender to palpation Psych: Normal mood and affect Skin: no rash or erythema Principal Diagnosis Vasospasm Discharge Exam GENERAL: No acute distress. Well developed and well nourished. Vital signs reviewed. EYES: EOMI. Anicteric sclerae. HENT: Moist mucous membranes. RESPIRATORY: No respiratory distress. Able to speak in full sentences without increased respiratory effort. NEUROLOGIC: No focal neurological deficits. CN II-XII grossly intact, but not individually tested. A/O x3. PSYCHIATRIC: Cooperative. Appropriate mood and affect. Discharge Data Allergies Allergy/AdvReac Type Severity Reaction Status Date / Time No Known Allergies Allergy Unverified 11/03/20 11:57 Consultations 11/03/20 13:41 ED Decision to Admit Stat 11/03/20 17:35 Consult Case Management - Discharge Planning Routine Consult Neurology Routine Ordered Studies 11/03/20 11:15 MR angio head wo con Stat MR brain wo/w con Stat 11/03/20 12:55 CT angio neck with con Stat Hospital Course (1) Intracranial vasospasm: Chata Mendiola is a 20 yo female with a PMHx of self-diagnosed ocular migraines x5 years and contraceptive use who was admitted for stroke work-up. Patient initially presented to ED after experiencing neurological symptoms including left arm weakness, left arm tingling, tongue/lip numbness/tingling, and a headache. Today, patient is doing well and is asymptomatic. Stroke Evaluation/ Intracranial Vasospasms - Brain MRI 11/03/20: There are at least 3 small foci of restricted diffusion in the posterior right parieto-occipital region as above consistent with acute to subacute ischemia. No additional foci of acute ischemia are identified. There is no hemorrhage or mass effect. - Head MRA 11/03/20: Unremarkable MR angiogram of the brain. - Neck CTA 11/03/20: Unremarkable CTA of the neck. - Lipid profile unremarkable -- Chol 125, Trig 99, LDL 57, HDL 48 - ESR negative - TTE 11/04: Left ventricular systolic function is normal. No significantly valvular heart disease. Bubble tudy performed which demonstrated late passage of bubbles to the left side, likely through pulmonary vasculature rather than a patent foramen ovale. - Patient with no residual neurological deficits throughout hospitalization - Hx of combined oral contraceptive use. Discontinued on admission. Patient counseled on contraceptive options and reasons to avoid estrogen-containing co ntraception due to hx of migraines and current episode of vasospasms. See below for more information. - Can consider Nertec medication for tx of migraines; noted that hx of migraines that occur once every 1-2 years (hx of migraine described as prodrome with vision deficit and difficulty reading x1-2 hours, then vision deficit resolves and onset of frontal headache x1-2 hours before resolution; has resolved with rest and Advil historically). - Neurology was consulted. Per neurology consult/recommendations: - "The patient has a history of classic migraine with aura. I believe her most recent episode was a complicated migraine with vasospasm causing her small strokes in a background of having been on control pill." - Continue 81mg ASA po daily. Awaiting coagulopathy studies. Consider initiating verapamil 120mg ER once daily to prevent vasospasm. Discontinue current control pill; alternative w/o estrogen should be considered. Avoid all triptans or other medicines that cause vasospasm. - On discharge, started patient on ASA, verapamil, and progestin-only OCP. - Scheduled for f/u on 11/09/20 at 1:30pm with [facility], Dr. Hollingsworth - F/u on pending labs including hypercoagulability labs Counseling and Advice on Contraception - Will discontinue combined oral contraceptive - Rx progestin-only contraceptive pill at time of discharge - Discussed options including LARCs (IUD/Nexplanon) and continuation of progesterone-only pill - Patient to f/u as outpatient to discuss options further after she has had time to research options - Provided patient with website www.bedsider.org for more information (2) General counselling and advice on contraception: Total Time Total Time Spent Total Time Spent (In Minutes): See attending attestation Discharge Plan Discharge Items Patient Disposition: Home - Self-Care Reason For Visit: STROKE Discharge Diagnosis: intracranial vasospasms Condition on Discharge: Good Activity: Per Instructions section Non-emergency contact: Primary Care Provider Call non-emergency contact if: you have any medication questions, your symptoms worsen, your pain is not controlled and your pain is worsening Follow-up/Referrals: [facility] [Primary Care Provider] - Federica Hollingsworth DO [Resident] - Diet: Regular Addtl Attending Provider Instructions: Chata Mendiola, It was our pleasure to care for you at [facility] from 11/03/20 to 11/04/20. You initially presented to the emergency department with neurological symptoms including numbness/tingling in your left arm, tongue, and lips as well as a headache. These symptoms were not similar to your history of migraines. You were evaluated by a neurologist, a brain specialist, during the hospitalization. Based on your imaging and his evaluation, it is believed that you had vasospasm, which is constriction of blood vessels, that lead to your presenting symptoms. As we discussed, because of your symptoms and history of migraines, we have stopped your combined control pill. We are starting you on a "mini-pill" which is a progesterone-only control pill. You can also research other contraceptive options including IUD and Nexplanon as we discussed. You may want to use the website www.bedsider.org as a starting place for reference. Start Verapamil 120mg ER by mouth once daily; this will help to prevent vasospasms. You should also continue 81mg Aspirin by mouth once daily. Please follow up with Dr. Hollingsworth. A follow up appointment has been scheduled for Monday, November 09, 2020 at 1:30 pm. Her office is located at [address] [place] [address], [address], [place] [address]. You can call Dr. Hollingsworth with any questions or concerns at [phone]. Pending Studies at Discharge: Yes Studies:: labs including hypercoagulability panel Stand-Alone Forms: Medications to Prevent Stroke, My [facility] [employer] Smoking Cessation Medications and DC Order Prescriptions: New aspirin 81 mg Tablet,Delayed Release (Dr/Ec) 81 mg PO DAILY 30 Days Qty: 30 RF: 0 verapamil 120 mg capsule,ext rel. pellets 24 hr 120 mg PO DAILY Qty: 30 RF: 0 norethindrone (contraceptive) [Rebeka] 0.35 mg tablet 0.35 mg PO DAILY Qty: 28 RF: 2 Discontinued Control 1 tab PO DAILY RF: 0 Discharge Orders: Discharge Order (Routine); Ordered 11/04/20 Ordered By: Federica Molina/Other Patient Handouts: Control Choices Admission Data Admit Date/Time: 11/03/20 14:50 Attending Provider: Natanael Bell Admit Provider: Cory Gutierres Primary Care Provider: [facility] Other Providers: Cory Gutierres ; Yann Nguyễn Other Interventions: Discharge Summary Assessment (RN) Last Done: 11/04/20 15:04 Supervising Physician Co-Signing Physician Notes Patient seen and examined with PGY 2 Dr. Hollingsworth. I agree with the history, exam findings, assessment and plan of care as outlined. In brief, Chata is a 20-year-old female with history of ocular migraine who is admitted with headache and left arm pain and weakness. She has been headache free and her arm pain and weakness has resolved since she was admitted. Her MRI on admission showed a small foci of restricted diffusion in the posterior right parieto-occipital area. Her ESR is normal. MRA of the head and neck is also normal. Transthoracic echocardiogram is unremarkable. The bubble study did show late passage of some bubbles but this is more consistent with pulmonary vasculature and not a PFO. 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 She was started on baby aspirin. A hypercoagulable panel is pending. She was seen by neurology. Suspect that these areas of restricted diffusion are secondary to vasospasm in the setting of migraine. She can be started on low-dose verapamil to address the vasospasm. Also, for migraine abortive medication, would avoid the triptan's. She would be a good candidate for [facility]. Her combined oral contraceptive was stopped due to the possibility of hypercoagulability. In the setting of migraines, it is probably best to avoid estrogen-containing products. She will be discharged on the minipill. She has been thinking about an IUD. This would be appropriate for her. She will follow up with [facility] as an outpatient. I personally spent 35 minutes discharge planning for this patient. Resident Activity Tracking Resident Involvement: Resident Care Provided Care Provided: Adult [facility]
--- NOTE | 2020-11-04 11:10 | XCELERA ---
[id number]
--- NOTE | 2020-11-04 11:18 | Neurology Consultation ---
Date of Consultation November 04, 2020 Assessment & Plan (1) Acute CVA (cerebrovascular accident): (2) Classic migraine with aura: patient had acute, small, left posterior parietal/occipital infarcts likely the evening of November 02. This accounts for her left upper extremity dysesthesias abnormal movements. Clinically, she has resolved and has no focal deficits, meningeal signs, or encephalopathy. The patient has a history of classic migraine with aura. I believe her most rec ent episode was a complicated migraine with vasospasm causing her small strokes in a background of having been on control pill. Recommendations: 1. echocardiogram is pending. 2. continue 81 milligram aspirin tablet daily. 3. Awaiting coagulopathy laboratory studies ( which will take the better part of a week to come back ). 4. Consider initiating verapamil 120 milligrams ER once daily to prevent vasospasm. 5. discontinue her current control pill. Alternatives without estrogen should be considered. 6. Avoid all Triptans or other medicines that cause vasospasm. 7. I can follow as an outpatient. Overall, I spent a total of 75 minutes with this case including review of records, review of MRI films, direct evaluation patient bedside, and discussion of the case with the patient at bedside, RN at bedside, and Dr. Bell, including differential diagnosis and treatment options. History of Present Illness Reason for Consultation: Patient is a 20-year-old, who was asked to see at the request of Dr. Gutierres, for neurologic consultation regarding migraine versus stroke. Requesting Physician: Dr. Gutierres Attending Physician: Natanael Bell, DO History of Present Illness this patient has a history of infrequent migraine events starting at age 15 occurring about once every year so. She will get blind spots in her vision bilaterally for 30 minutes followed by a bifrontal intense headache lasting about an hour. Advil can help. There is no nausea or vomiting but she does have some photophobia with the events. Her most recent event like this was over a year ago. The patient has no other significant past medical history and she was on no medication except control pill. She has been on this control pill for the last 3-4 years. Patient tells me that she will have a 10 beers up to 3-4 times per week. She will drink till she gets inebriated but she has never passed out drinking and does not get shaky when she does not drink. On the evening of November 02 she went to a bar and started sipping her beer. At 2100 she had the sudden onset of pins and needles in the entire left upper extremity. There these random movements of her fingers and arm of a slow nature that she could not control. She could not feel the cell phone in her hand and dropped it. She did not have neck pain, arm pain, or noticeable weakness.The dysesthesias of the left upper extremity lasted about 2-3 minutes and then completely resolved. A few minutes later she had blind and blurry spots in her vision bilaterally. This lasted about 20 minutes and then there are pins and needles in her arm again without the movements. The left upper extremity pins and needles only lasted a few minutes and then resolved again. She went home and the vision symptoms were gone but she had a pounding headache that interrupt her sleep. At 6 a.m. she woke up and still had hepatic bifrontal headache. She had no arm symptoms or vision symptoms. The headache lasted until 1000 and then resolved. She arrived to the emergency room November 03 at 1053 with a temperature 36.5, pulse 85 and regular, respiratory rate 19, blood pressure 130/94 and O2 saturation 100 percent. Her neurologic examination was unremarkable. CBC and Chem profile were unremarkable and urine tox screen a test was unremarkable. CT angiography of the neck and MR angiography of the brain were unremarkable. MRI of the brain showed 3 small right posterior parietal /occipital acute strokes. I reviewed these films. I showed the patient her films as well. This morning she is at baseline with no symptoms. Allergies Allergy/AdvReac Type Severity Reaction Status Date / Time No Known Allergies Allergy Unverified 11/03/20 11:57 Home Medications Medication Instructions Recorded Confirmed Type Control 1 tab PO DAILY 11/03/20 11/03/20 History Patient History Medical History Classic migraine with aura General counselling and advice on contraception Intracranial vasospasm No pertinent past medical history non smoker Family History Father Seizure Social History Smoking Status: Never smoker Hx Alcohol Use: Yes Alcohol type: beer and hard liquor Alcohol Intake Frequency Comment: 8-10 beers, 3 to 4 times a week Hx Substance Use: No Preferred Language: Filipino Liquor Department Manager Required: No Beliefs That Will Affect Care: None Current Living Situation: Other Current Living Situation Comment: house of campus, roommates 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, supply chain management major Feels Safe at Home: Yes Safety Concerns: Feels Safe At This Time Assistive Devices: None Review of Systems Constitutional: no fever, no fatigue and no weakness Eyes: no diplopia, no eye pain and no worsening vision Ear, Nose, Mouth, Throat: no ear pain, no tinnitus, no hearing loss, no dizziness, no hoarseness and no dysphagia Respiratory: no cough and no dyspnea Cardiovascular: no chest pain, no palpitations and no lightheadedness Gastrointestinal: no abdominal pain, no nausea and no vomiting Genitourinary: no dysuria, no urinary frequency and no urinary incontinence Musculoskeletal: no back pain, no neck pain, no radicular pain, no joint pain and no myalgia Integumentary: no rash and no lesions Neurologic: no gait abnormality, no localized weakness, no generalized weakness, no tingling, no numbness, no tremor(s), no abnormal movements, no headache(s), no abnormal speech, no confusion and no memory loss Psychiatric: no depression, no irritability, no anxiety, no difficulty concentrating, no confusion and no hallucinations Endocrine: no fatigue and no flushing Hematologic / Lymphatic: no easy bleeding and no easy bruising Allergy / Immunological: no urticaria and no problem reported Exam (Neuro) Physical Exam: The patient is right-handed. The patient is awake, alert, and attentive. Speech is normal without any aphasia or dysarthria. She can name objects, repeat phrases, and has normal spontaneous speech. Mentation and thought processes are intact, with orientation to person, place and time, and normal fund of knowledge. Attention and concentration are normal. Mood and affect are normal and appropriate. General appearance and grooming are normal. Short and long-term memory are intact. The discs are sharp with positive venous pulsations bilaterally. There are no exudates, hemorrhages, or blood vessel changes seen. Pupils are 4 mm bilaterally and reactive to light. Extraocular eye muscles are intact without nystagmus. Visual acuity and visual lyons seem normal grossly to confrontation. There are no deficits to sensation in the face in all 3 distributions of the fifth cranial nerve bilaterally. Corneal reflexes are positive bilaterally. Facial strength and symmetry was normal bilaterally. Hearing seems normal to whisper and finger rub bilaterally. Palate moves well without asymmetry. There is normal sternocleidomastoid and trapezius (shoulder shrug) strength bilaterally. Tongue is midline with good strength bilaterally. Neck has a full range of motion without discomfort. There are no cervical bruits bilaterally. There are no cranial or ocular bruits. Heart is without murmur. There is a regular rhythm and rate. Cervical, thoracic, and lumbar spine are nontender to palpation. Gait is narrow based, with good arm swing, turns, and stance. Balance is normal eyes open or closed. With outstretched arms there is no drift. There are no resting, postural, or act ion tremors. There is no ataxia with finger to nose testing. There is good facility in the hands. No other abnormal involuntary movements are noted. Motor strength is 5/5 diffusely in the arms bilaterally including deltoids, biceps, triceps, brachioradialis, wrist flexors and extensors, independent consultant, and intrinsic hand muscles. Motor strength is 5/5 diffusely in the legs bilaterally including hip flexors, quadriceps, hamstrings, gastrocnemius, tibialis anterior, tibialis posterior, and Peroneii muscles. Toe extensors are normal and there is good bulk in the extensor digitorum brevis muscles bilaterally. The limbs have good tone without rigidity or spasticity. There is no atrophy noted in the muscles. Muscle bulk is normal, there is no tenderness to palpation, no myotonia to percussion, and no fasciculations seen. Sensory examination is intact to touch and pin throughout all 4 limbs diffusely. Reflexes are 2/4 in the biceps, triceps, brachioradialis, quadriceps, and Achilles tendons bilaterally. There is no clonus bilaterally. Toes are downgoing with plantar stimulation bilaterally. Peripheral pulses are present and of normal quality distally in all 4 limbs. There is no peripheral edema noted in the limbs. Results & Data ([facility]) Vital Signs (Past 12 Hours) Vital Signs Temp Pulse Pulse Resp BP Pulse Ox 11/04/20 07:24 36.5 C 67 18 103/64 97 11/04/20 07:00 63 11/04/20 03:54 36.6 C 61 18 113/76 94 11/04/20 00:10 81 11/03/20 23:57 37.2 C 70 18 104/68 99 PG Care Time/CCT Total # of Minutes Spent Total Time Spent with Patient: Total time spent is greater than 50% in coordination of care (as documented) at patient's floor/unit and/or counseling patient: Coding Level of Care Code 29570 Office/OBS Consult Lvl 5 Diagnoses Acute CVA (cerebrovascular accident) I63.9 Classic migraine with aura G43.109 Time Spent (min) 75
[2020-11-04] MEDS ORDERED: STROKE PATIENT DISCHARGE STA (14:42)
--- NOTE | 2020-11-04 15:03 | Pharmacy Report ---
Pharmacist Stroke Counseling - Date of Service November 04, 2020 - Scope: Pharmacy has been consulted to provide medication discharge counseling for this patient admitted with ischemic stroke as per the Pharmacist Discharge Counseling for Stroke Patients Protocol. - Medications on Discharge: Home Medications Medication Instructions Recorded Confirmed Control 1 tab PO DAILY 11/03/20 11/03/20 New Rx's Medication Instructions Recorded aspirin 81 mg PO DAILY 30 Days #30 tab 11/04/20 norethindrone (contraceptive) 0.35 mg PO DAILY #28 tab 11/04/20 [Rebeka] verapamil 120 mg PO DAILY #30 cap 11/04/20 - Action: The above medications, specifically ones for stroke treatment/prophylaxis, have been reviewed in detail with the patient prior to discharge. This includes norberto cation, common adverse reactions, drug interactions, and medication administration. Medication counseling has been employed using the teach-back method to ensure understanding. - Outcome: The patient demonstrated understanding of the medications. Reviewed all medications with patient prior to discharge today. Explained change in control to mini-pill. Briefly discussed side effects of Aspirin and Verapamil. Explained benefits of being on Aspirin and importance of not missing doses of both Aspirin and Verapamil. Patient expressed understanding. Reminded pt to follow up with primary care provider and report any side effects from new meds. Thank you for allowing pharmacy to be involved in the care of this patient. Please call [phone] with any additional questions
[2020-11-06 23:21] LABS: B2 Glycoprotein IgA <9 SAU (<=20); B2 Glycoprotein IgG <9 SGU (<=20); B2 Glycoprotein IgM <9 SMU (<=20); Phosphatidylserine IgG <10 U/mL (<10); Phosphatidylserine IgM <25 U/mL (<25); Protein S Functional(Activity) 97 % (60-140)
[2020-11-07 22:52] LABS: Anti Cardiolipin Ab IgG <14 GPL; Anti Cardiolipin Ab IgM <12 MPL; Anti-Thrombin III Activity 87 % normal (80-135); PTT LA Screen 36 sec (<=40)
== END 2020-11-04 15:55 | disposition home or self-care (01) ==
LOC: 2N 10:52 → ED 10:52 → SUATTDRO 14:50 → 2N 17:27